=== PATIENT | female | born 1985 | race African-American/Black ===

== ENCOUNTER → 2017-06-20 | Outpatient (CLI) | payer OTHER, MEDICAID ==
--- NOTE | 2017-06-20 12:46 | RADIOLOGY REPORT (SQ) ---
EXAM DESCRIPTION: VENOUS UNILATERAL LOWER COMPLETED DATE/TIME: 06/20/2017 12:22 pm REASON FOR STUDY: LLE EDEMA, PAIN COMPARISON: None. TECHNIQUE: Dynamic and static thomas scale and color images acquired of the left leg venous system. Se lected spectral images acquired with additional compression and augmentation maneuvers. The contralat eral common femoral vein and saphenofemoral junction were also imaged. Images stored on PACS. LIMITATIONS: None. FINDINGS: LEFT COMMON FEMORAL: Normal phasicity, compression and augmentation. No visualized echogenic material on g ray scale. No defects on color images. FEMORAL: Normal compression and augmentation. No visualized echogenic material on thomas scale. No defe cts on color images. POPLITEAL: Normal compression, augmentation. No visualized echogenic material on thomas scale. No defec ts on color images. CALF VESSELS: Normal compression, augmentation. No visualized echogenic material on thomas scale. No de fects on color images. GSV and SSV: Normal compression, augmentation. No visualized echogenic material on thomas scale. No def ects on color images. ANY DEEP VENOUS INSUFFICIENCY: Not evaluated. ANY EVIDENCE OF POPLITEAL CYST: No. OTHER: No other significant finding. RIGHT COMMON FEMORAL VEIN AND SAPHENOFEMORAL JUNCTION: Normal phasicity, compression and augmentation. No visualized echogenic material on thomas scale. No de fects on color images. IMPRESSION: NO EVIDENCE DVT OR SVT IN THE LEFT LEG. TECHNICAL DOCUMENTATION: JOB ID: [id number] [employer]- All Rights Reserved
== END ==
LOC: SP 11:35
PROVIDERS: ATTEND Family Medicine
DX: M79.662 Pain in left lower leg (principal); R60.0 Localized edema
CPT/HCPCS: 93971

== ENCOUNTER 2017-09-24 02:49 | Emergency (ER) | payer OTHER, MEDICAID ==
[2017-09-24 03:13] VITALS: BP 104/74
--- NOTE | 2017-09-24 03:44 | ER Document Report ---
ED General - General Mode of Arrival: Ambulatory Information source: Patient TRAVEL OUTSIDE OF THE [place] IN LAST 30 DAYS: No - HPI Patient complains to provider of: Flu like symptoms Onset: Other - 1 week ago Associated symptoms: Other - see notes above <MADALYN AUGUSTIN - Last Filed: 09/24/17 05:41> <KAREN CORREA - Last Filed: 09/24/17 05:46> - General Chief Complaint: Fever Stated Complaint: BODY PAIN Time Seen by Provider: 09/24/17 03:18 Notes: 32 year old female presents to the ED complaining of body aches, productive cough with brown-yellow sputum, diffuse headache, rhinorrhea, and sore throat that started 1 week ago. Patient reports to using Theraflu and Mucinex for minimal relief. Patient additionally complains of vomiting a few days ago, but none currently. Patient takes Advil and Tylenol for headache relief, but it returns shortly after taking the meds. (MADALYN AUGUSTIN) - Related Data Allergies/Adverse Reactions: Penicillins Allergy (Severe, Verified 09/24/17 03:06) Past Medical History - General Information source: Patient - Social History Smoking Status: Current Every Day Smoker Chew tobacco use (# tins/day): No Frequency of alcohol use: Occasional Drug Abuse: None Family History: Reviewed & Not Pertinent Patient has suicidal ideation: No Patient has homicidal ideation: No - Past Medical History Cardiac Medical History: Reports: Hx Hypertension Pulmonary Medical History: Denies: Hx Tuberculosis Neurological Medical History: Reports: Hx Migraine Renal/ Medical History: Denies: Hx Peritoneal Dialysis Musculoskeltal Medical History: Reports Hx Arthritis Psychiatric Medical History: Reports: Hx Anxiety, Hx Bipolar Disorder, Hx Depression - Immunizations Immunizations up to date: No Hx Diphtheria, Pertussis, Tetanus Vaccination: No Hx Pneumococcal Vaccination: 10/05/12 <MADALYN AUGUSTIN - Last Filed: 09/24/17 05:41> - Social History Smoking Education Provided: Yes - 4 mins <KAREN CORREA - Last Filed: 09/24/17 05:46> Review of Systems - Review of Systems Constitutional: See HPI, Malaise EENT: See HPI, Nose discharge, Throat pain Cardiovascular: No symptoms reported Respiratory: See HPI, Cough, Sputum Gastrointestinal: See HPI, Vomiting Genitourinary: No symptoms reported Female Genitourinary: No symptoms reported Musculoskeletal: No symptoms reported Skin: No symptoms reported Hematologic/Lymphatic: No symptoms reported Neurological/Psychological: See HPI, Headaches -: Yes All other systems reviewed and negative <MADALYN AUGUSTIN - Last Filed: 09/24/17 05:41> Physical Exam <MADALYN AUGUSTIN - Last Filed: 09/24/17 05:41> <KAREN CORREA - Last Filed: 09/24/17 05:46> - Vital signs Vitals: Temp Pulse Resp BP Pulse Ox 98.1 F 70 16 104/74 98 09/24/17 03:12 09/24/17 03:12 09/24/17 03:12 09/24/17 03:12 09/24/17 03:12 - Notes Notes: GENERAL: Alert, interacts well. No acute distress. HEAD: Normocephalic, atraumatic. EYES: Pupils equal, round, and reactive to light. Extraocular movements intact. ENT: Oral mucosa moist, tongue midline. Nares patent, no nasal septal hematoma. Bilateral TMs are bulging with clear fluid behind them. Cloudy rhinorrhea. Enlarged tonsils. Cobblestoning with post-nasal drip. Turbinate edema. NECK: Full range of motion. Supple. Trachea midline. LUNGS: Clear to auscultation bilaterally, no wheezes, rales, or rhonchi. No respiratory distress. HEART: Regular rate and rhythm. No murmurs, gallops, or rubs. ABDOMEN: Soft, non-tender. Non-distended. Bowel sounds present in all 4 quadrants. EXTREMITIES: Moves all 4 extremities spontaneously. No edema, radial pulses 2/4 bilaterally. No cyanosis. NEUROLOGICAL: Alert and oriented x3. Normal speech. PSYCH: Normal affect, normal mood. SKIN: Warm, dry, normal turgor. No rashes or lesions noted. (MADALYN AUGUSTIN) Course <MAYCO AUGUSTINUR - Last Filed: 09/24/17 05:41> <KAREN CORREA - Last Filed: 09/24/17 05:46> - Re-evaluation Re-evalutation: 09/24/17 03:51 Symptoms consistent with influenza, no indication for testing as she is outside of timeframe for treatment with Tamiflu, symptoms onset approximately 4 days ago. Abdomen is benign, no evidence of dehydration, patient was offered Toradol injection for her myalgias which she declines. Patient counseled on comfort measures including symptomatic treatment with nasal saline rinses and Tessalon Perles. Patient will be discharged to home. Son has similar symptoms during similar timeframe. (KAREN CORREA) - Vital Signs Vital signs: Temp Pulse Resp BP Pulse Ox 98.1 F 70 16 104/74 98 09/24/17 03:12 09/24/17 03:12 09/24/17 03:12 09/24/17 03:12 09/24/17 03:12 Discharge <MADALYN AUGUSTIN - Last Filed: 09/24/17 05:41> <KAREN CORREA - Last Filed: 09/24/17 05:46> - Discharge Clinical Impression: Viral syndrome, Tobacco abuse, Tobacco abuse counseling Condition: Stable Disposition: HOME, SELF-CARE Additional Instructions: Viral Syndrome The physician has diagnosed a viral infection. Viruses not only cause "colds," but can cause many different symptoms including generalized aching, fever, headache, cough, diarrhea, nausea, vomiting, and fatigue. The treatment, for the most part, is simply relief of symptoms. This means that antibiotics are usually not given. Rest, fluids, pain medications and, occasionally, medication for the specific symptoms that are most bothersome will be prescribed. Use good handwashing to avoid passing the virus to others. Shared toys should be cleaned with disinfectant. Clean the toilets, sinks, and counter surfaces in bathrooms. Launder clothing in hot water. Contact the physician if you develop any new or unusual symptoms such as severe headache, stiff neck, high fever, chest pain, productive cough, or shortness of breath. You should be rechecked if you don't see marked improvement within seven to 10 days. Please use ibuprofen (Motrin or Advil) 600-800 mg every 8 hours as needed for pain or fever. You may also use acetaminophen (Tylenol) 1000 mg every 4-6 hours as needed for pain or fever. Please be aware that many medications contain acetaminophen, do not exceed a total of 1000 mg of acetaminophen every 6 hours. Please use nasal saline rinses such as a NetiPot or NeilMed Sinus Rinses. You may use Sudafed and Mucinex and Benadryl according to the directions on the box to relieve your nasal congestion. I have prescribed you Tessalon Perles to help decrease your cough. Prescriptions: Benzonatate [Tessalon Perles 100 mg Capsule] 100 mg PO Q8HP PRN #40 capsule PRN Reason: Forms: Smoking Cessation Education Referrals: ALEKSANDAR AUGUSTIN MD [Primary Care Provider] - Follow up in 3-5 days Scribe Attestation: 09/24/17 05:45 I personally performed the services described in the documentation, reviewed and edited the documentation which was dictated to the scribe in my presence, and it accurately records my words and actions. (KAREN CORREA) Scribe Documentation - Scribe Written by Adolfo:: Adolfo Floyd, 09/24/2016 [id number] acting as scribe for :: Eugenio <MADALYN AUGUSTIN - Last Filed: 09/24/17 05:41>
[2017-09-24] MEDS ORDERED: BENZONATATE 100 MG CAPSULE PO ONE (03:54)
[2017-09-24] MEDS ORDERED: KETOROLAC TROMETHAMINE 60 MG/2 ML SDV IM ONE (04:14)
== END 2017-09-24 05:00 | disposition home or self-care (01) ==
LOC: ER 02:49
DX: R50.9 Fever, unspecified (principal); B34.9 Viral infection, unspecified; M79.1 Myalgia; R53.81 Other malaise; F17.200 Nicotine dependence, unspecified, uncomplicated; I10 Essential (primary) hypertension; Z88.0 Allergy status to penicillin
CPT/HCPCS: 99283; 96372; J1885